=== PATIENT | female | born 1995 | race Caucasian/White ===

== ENCOUNTER 2020-05-18 13:55 | Emergency (ER) | payer OTHER ==
[2020-05-18 14:07] VITALS: BMI 19.6
[2020-05-18 18:47] LABS: EPI CELLS 29 /uL (0-25.1); HYALINE CASTS 2 /uL (0-3.1); PH,URINE 5.5 (5.0-8.0); URINE APPEARANCE CLOUDY; URINE BACTERIA 21 /uL (0-1359); URINE BILIRUBIN NEGATIVE (NEGATIVE); URINE COLOR YELLOW; URINE GLUCOSE (UA) NEGATIVE (NEGATIVE); URINE KETONE 1+ (NEGATIVE); URINE LEUK ESTERASE 1+ (NEGATIVE); URINE NITRITE NEGATIVE (NEGATIVE); URINE PROTEIN NEGATIVE (NEGATIVE); URINE RBC 27 /uL (0-23.9); URINE UROBILINOGEN 0.2 mg/dL (0.2-1.0); URINE WBC 19 /uL (0-25.8)
[2020-05-18 18:49] LABS: HCG,QUALITATIVE URINE Negative
[2020-05-18 19:02] VITALS: BP 110/76; PULSE 79; TEMP 98
== END 2020-05-18 19:02 | disposition home or self-care (01) ==
LOC: JER 13:55
DX: N93.8 Other specified abnormal uterine and vaginal bleeding (principal)
CPT/HCPCS: 36415; 76817-TC; 81003; 84702; 84703; 86850; 86900; 86901; 87086; 99284-25